=== PATIENT | male | born 1960 | race Caucasian/White ===

== ENCOUNTER 2019-07-19 19:28 | Emergency (ER) | payer OTHER, BC, SELFPAY ==
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
[2019-07-19 19:34] VITALS: BP 138/95; PULSE 79; RESP 16; TEMP 36.7; O2SAT 98
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
[2019-07-19 22:04] VITALS: BP 133/89; PULSE 78; RESP 19; O2SAT 97
== END 2019-07-19 22:05 | disposition home or self-care (01) ==
PROVIDERS: Emergency Provider Emergency Medicine; PCP Internal Medicine
DX: S06.0X0A Concussion without loss of consciousness, initial encounter (principal); M47.812 Spondylosis without myelopathy or radiculopathy, cervical region; V43.52XA Car driver injured in collision with other type car in traffic accident, initial encounter
CPT/HCPCS: 70450; 72125; 99284; A9270; L0140